=== PATIENT | male | born 1995 | race Caucasian/White ===

== ENCOUNTER 2024-05-30 19:25 | Emergency (ER) | payer SELFPAY ==
[~2024-05-30] VITALS: Ht 182.9 cm; Wt 106.0 kg
[2024-05-30 19:28] VITALS: O2SAT 96
[2024-05-30 19:30] VITALS: TEMP 36.8; O2SAT 98
[2024-05-30 23:48] VITALS: BP 156/90; PULSE 98; RESP 16
[2024-05-30] MEDS: KETOROLAC 15MG/ML VIAL IM ONE (23:48)
[2024-05-31] MEDS ORDERED: IBUP-2029 MT (00:39)
[2024-05-31] MEDS ORDERED: CYCL10TA21 MT (00:39)
== END 2024-05-31 00:49 | disposition home or self-care (01) ==
LOC: ER 19:25
DX: S80.02XA Contusion of left knee, initial encounter (principal); I10 Essential (primary) hypertension; F41.9 Anxiety disorder, unspecified; Z79.899 Other long term (current) drug therapy; Z88.2 Allergy status to sulfonamides; V89.2XXA Person injured in unspecified motor-vehicle accident, traffic, initial encounter; Y93.89 Activity, other specified; Y92.89 Other specified places as the place of occurrence of the external cause; Y99.8 Other external cause status
CPT/HCPCS: 71046; 73562; 73620; 74176; 96372; 99285; 70450; J1885; Z7610